=== PATIENT | female | born 1990 | race Caucasian/White ===

== ENCOUNTER → 2017-11-04 | Emergency (ER) | payer OTHER ==
[~2017-11-04] VITALS: Ht 152.4 cm; Wt 58.1 kg
[~2017-11-04] MED LIST: ADRENAL; ESTRATERA; PRILOSEC10 MG
== END | disposition home or self-care (01) ==
LOC: ER 13:52
DX: R10.31 Right lower quadrant pain (principal); K50.90 Crohn's disease, unspecified, without complications